=== PATIENT | female | born 1980 | race African-American/Black ===

== ENCOUNTER 2016-12-13 10:25 | Emergency (ER) | payer OTHER ==
[2016-12-13 10:35] VITALS: BP 134/81; PULSE 76; TEMP 98; BMI 36.5
[2016-12-13] MEDS ORDERED: KETOROLAC TROMETHAMINE 60 MG/2 ML VIAL ONE (11:30)
[2016-12-13] MEDS ORDERED: KETOROLAC TROMETHAMINE 60 MG/2 ML VIAL IM ONE (11:40)
--- NOTE | 2016-12-13 11:42 | PDOC ---
History of Present Illness - General Chief Complaint: Pain Stated Complaint: PAIN Time Seen by Provider: 12/13/16 10:50 History Source: Patient Exam Limitations: No Limitations - History of Present Illness Initial Comments: 12/13/16 11:41 Complaints of left groin pain started on Monday. States goes to the gym regularly and may have pulled a muscle doing some different gluteal exercises last week. Patient has chronic back pain and is on disability, receives physical therapy for exercising her lumbar spine and her knees. Patient states tried ibuprofen with minimal resolved. But states pain was so bad yesterday had difficulty getting out of bed. Denies fever, denies any dysuria, vaginal problems, or bowel problems. Has no lymph nodes that are swollen, and is never injured her groin in the past. Denies back pain or any radiating pain. States pain is primarily in the inner aspect of her left groin 12/13/16 19:26 Occurred: reports: last week Severity: reports: mild, moderate Pain Location: reports: lower extremity (left groin ) Modifying Factors: improves with: None Associated Symptoms (Fall): denies symptoms Past History - Travel Traveled outside of the country in the last 30 days: No Close contact w/someone who was outside of country & ill: No - Past Medical History Allergies/Adverse Reactions: Allergies Allergy/AdvReac Type Severity Reaction Status Date / Time No Known Allergies Allergy Verified 12/13/16 10:35 Home Medications: Ambulatory Orders NK [No Known Home Medication] 12/13/16 Asthma: Yes Other medical history: BULGING DISC - Reproductive History (#): 4 Therapeutic (s) & number: No - Psycho/Social/Smoking Cessation Hx Anxiety: No Suicidal Ideation: No Smoking Status: Yes Smoking History: Current every day smoker Have you smoked in the past 12 months: Yes Number of Cigarettes Smoked Daily: 10 Information on smoking cessation initiated: No Hx Alcohol Use: No Drug/Substance Use Hx: No Substance Use Type: None Trauma Specific PMHX - Complaint Specific PMHX Back Injury: No Neck Injury: No Review of Systems - Review of Systems Able to Perform ROS?: Yes Is the patient limited Estonian proficient: No Constitutional: Yes: Symptoms Reported HEENTM: Yes: Symptoms Reported All Other Systems: Reviewed and Negative *Physical Exam - Vital Signs Last Vital Signs Temp Pulse Resp BP Pulse Ox 98 F 76 18 134/81 98 12/13/16 10:31 12/13/16 10:31 12/13/16 10:31 12/13/16 10:31 12/13/16 10:31 - Physical Exam General Appearance: Yes: Nourished, Appropriately Dressed, Apparent Distress HEENT: positive: ZACHARY, Normal ENT Inspection, TMs Normal, Pharynx Normal Neck: positive: Supple. negative: Lymphadenopathy (R), Lymphadenopathy (L) Respiratory/Chest: positive: Lungs Clear, Normal Breath Sounds Extremity: positive: Normal Capillary Refill. negative: Normal Range of Motion (Limited range of motion to forward flexion and external rotation with pain reproduced at inguinal tendon . 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 Patient already receiving physical therapy for chronic back pain issues and will discuss possible therapy for this treatment to *DC/Admit/Observation/Transfer Diagnosis at time of Disposition: Inguinal strain Qualifiers: Encounter type: initial encounter Laterality: left Qualified Code(s): S76.212A - Strain of adductor muscle, fascia and tendon of left thigh, initial encounter - Discharge Dispostion Disposition: HOME Condition at time of disposition: Stable Admit: No - Referrals Referrals: Connor Colon [Primary Care Provider] - - Patient Instructions Printed Discharge Instructions: DI for Groin Strain Additional Instructions: Rest, ice to area on and off for 15 minutes 4-6 times a day Avoid heavy lifting or exercise until pain and swelling is resolved or until further directed Keep area highly elevated to reduce swelling Use splints/Latrell wrap as directed Followup with orthopedist in one to 2 days if not improving, if significantly improved may wait one week for followup with orthopedist May use Naprosyn 1 -500 mg tablet every 8 hours for 2 days then as needed as needed for pain
== END 2016-12-13 11:42 | disposition home or self-care (01) ==
LOC: JERFT 10:25
PROC: 3E0233Z Introduction of Anti-inflammatory into Muscle, Percutaneous Approach (ICD-10-PCS; principal; 2016-12-13)
DX: S76.212A Strain of adductor muscle, fascia and tendon of left thigh, initial encounter (principal); S39.011A Strain of muscle, fascia and tendon of abdomen, initial encounter; X50.0XXA Overexertion from strenuous movement or load, initial encounter; Y93.B9 Activity, other involving muscle strengthening exercises; Y92.39 Other specified sports and athletic area as the place of occurrence of the external cause; Y99.8 Other external cause status
CPT/HCPCS: 96372; 99281-25

== ENCOUNTER 2019-03-28 20:47 | Emergency (ER) | payer OTHER ==
[2019-03-28 20:58] VITALS: BP 160/82; PULSE 79; TEMP 98.4; BMI 38.9
--- NOTE | 2019-03-28 20:58 | PDOC ---
Rapid Medical Evaluation Time Seen by Provider: 03/28/19 20:54 Medical Evaluation: Allergies Allergy/AdvReac Type Severity Reaction Status Date / Time No Known Allergies Allergy Verified 12/13/16 10:35 03/28/19 20:54 Pt presents for R calf pain/knee pain started today. She admits to numbness to the affected area. Also has hx of Hip pain. No recent travel or OC use. (+) smoker Exam: TTP of the R medial calf bordering the R knee Orders: duplex Pt to proceed to the ER for further evaluation Discharge Disposition - Diagnosis Leg pain Qualifiers: Laterality: right Qualified Code(s): M79.604 - Pain in right leg - Referrals Referrals: Connor Colon [Primary Care Provider] - - Patient Instructions - Post Discharge Activity
--- NOTE | 2019-03-28 22:54 | PDOC ---
History of Present Illness - General Chief Complaint: Pain, Acute Stated Complaint: RIGHT KNEE PAIN Time Seen by Provider: 03/28/19 20:54 - History of Present Illness Initial Comments: 03/28/19 22:54 CHIEF COMPLAINT: HISTORY OF PRESENT ILLNESS: 38 yo F presents to [facility] with R knee/calf pain since 6 pm today. Patient reports that she was talking on the phone and took a step when she started feeling pain to her upper calf/posterior knee No recent travel or sick contacts. PAST MEDICAL HISTORY: Denies past medical history FAMILY HISTORY: Denies SOCIAL HISTORY: Smokes 1/2 pack daily. Denies tobacco, alcohol, illicit drug use. SURGICAL HISTORY: Denies ALLERGIES: No known drug allergies REVIEW OF SYSTEMS General/Constitutional: Denies fever or chills. Denies weakness, weight change. HEENT: Denies change in vision. Denies ear pain or discharge. Denies sore throat. Cardiovascular: Denies chest pain or shortness of breath. Respiratory: Denies cough, wheezing, or hemoptysis. Gastrointestinal: Denies nausea, vomiting, diarrhea or constipation. Denies rectal bleeding. Genitourinary: Denies dysuria, frequency, or change in urination. Musculoskeletal: Pain to R lower extremity. Denies neck or back pain. Skin and breasts: Denies rash or easy bruising. Neurologic: Denies headache, vertigo, loss of consciousness, or loss of sensation. Psychiatric: Denies depression or anxiety. PHYSICAL EXAM General Appearance: Well-appearing, appropriately dressed. No apparent distress , no intoxication. HEENT: EOMI, PERRLA, normal ENT inspection, normal voice, TMs normal, pharynx normal. No conjunctival pallor. No photophobia, scleral icterus. Neck: Supple. Trachea midline. No tenderness, rigidity, carotid bruit, stridor , lymphadenopathy, or thyromegaly. Respiratory/Chest: Lungs CTAB. No shortness of breath, chest tenderness, respiratory distress, accessory muscle use. No crackles, rales, rhonchi, stridor , wheezing, dullness Cardiovascular: RRR. S1, S2. No JVD, murmur, bradycardia, tachycardia. Vascular Pulses: Dorsalis-Pedis (R): 2+, Dorsalis-Pedis (L): 2+ Gastrointestinal/Abdominal: Normal bowel sounds. Abdomen soft, non-distended. No tenderness or rebound tenderness. No organomegaly, pulsatile mass, guarding , hernia, hepatomegaly, splenomegaly. Lymphatic: No adenopathy, tenderness. Musculoskeletal/Extremities: Mild tenderness to posterior R knee and R tibial plateau. Normal inspection. FROM of all extremities, normal capillary refill. Pelvis Stable. No CVA tenderness. No tenderness to extremities, pedal edema, swelling, erythema or deformity. Integumentary: Appropriate color, dry, warm. No cyanosis, erythema, jaundice or rash Neurologic: die stamper II-XII intact. Fully oriented, alert. Appropriate mood/affect. Motor strength 5/5. No appreciable EOM palsy, facial droop or sensory deficit. 03/28/19 23:03 Past History - Past Medical History Allergies/Adverse Reactions: Allergies Allergy/AdvReac Type Severity Reaction Status Date / Time No Known Allergies Allergy Verified 03/28/19 20:55 Home Medications: Ambulatory Orders Diclofenac Sodium 75 mg PO BID #20 tablet. 03/28/19 Asthma: Yes COPD: No Other medical history: chronic back pain - Reproductive History (#): 4 Therapeutic (s) & number: No - Suicide/Smoking/Psychosocial Hx Smoking Status: Yes Smoking History: Current every day smoker Have you smoked in the past 12 months: Yes Number of Cigarettes Smoked Daily: 10 Information on smoking cessation initiated: No Hx Alcohol Use: No Drug/Substance Use Hx: No Substance Use Type: None *Physical Exam - Vital Signs Last Vital Signs Temp Pulse Resp BP Pulse Ox 98.4 F 79 18 160/82 97 03/28/19 20:56 03/28/19 20:56 03/28/19 20:56 03/28/19 20:56 03/28/19 20:56 Medical Decision Making - Medical Decision Making 03/28/19 23:05 38 yo F presents to [facility] with R knee/calf pain since 6 pm today. -duplex ultrasound -knee xray US, xrays negative for acute pathology. knee immobilizer, toradol f/u with ortho *DC/Admit/Observation/Transfer Diagnosis at time of Disposition: Leg pain, right - Discharge Dispostion Disposition: HOME Condition at time of disposition: Stable Decision to Admit order: No - Prescriptions Prescriptions: Diclofenac Sodium 75 mg PO BID #20 tablet.dr - Referrals Referrals: Connor Colon [Primary Care Provider] - Piyush Umana MD [Non Staff, Medical] - Barry Zurita MD [Staff Physician] - - Patient Instructions Printed Discharge Instructions: DI for Leg Pain - Post Discharge Activity
[2019-03-28] MEDS ORDERED: KETOROLAC TROMETHAMINE 60 MG/2 ML VIAL IM ONE (23:02)
[2019-03-28] MEDS ORDERED: KETOROLAC TROMETHAMINE 60 MG/2 ML VIAL ONE (23:04)
== END 2019-03-28 23:14 | disposition home or self-care (01) ==
LOC: JERFT 20:47
PROC: 2W3RX1Z Immobilization of Left Lower Leg using Splint (ICD-10-PCS; principal; 2019-03-28)
PROC: 3E0233Z Introduction of Anti-inflammatory into Muscle, Percutaneous Approach (ICD-10-PCS; 2019-03-28)
DX: M79.662 Pain in left lower leg (principal); M25.562 Pain in left knee; F17.210 Nicotine dependence, cigarettes, uncomplicated
CPT/HCPCS: 73560-TC-RT-FY; 93971-TC; 99282-25

== ENCOUNTER 2019-04-06 10:30 | Emergency (ER) | payer OTHER ==
[2019-04-06 10:42] VITALS: BP 147/90; PULSE 80; TEMP 98.4; BMI 38.7
[2019-04-06] MEDS ORDERED: DEXAMETHASONE LIQUID 0.5 MG/5 ML PO ONE (11:29)
[2019-04-06] MEDS ORDERED: DEXAMETHASONE SOD PHOSPHATE 10 MG/1 ML VIAL ONE (11:30)
--- NOTE | 2019-04-06 11:35 | PDOC ---
History of Present Illness - General Chief Complaint: Cold Symptoms Stated Complaint: cough Time Seen by Provider: 04/06/19 11:19 - History of Present Illness Initial Comments: 04/06/19 11:31 38-year-old female with a past medical history of asthma presents for evaluation of upper respiratory cold symptoms 1 week without systemic symptoms. Past History - Past Medical History Allergies/Adverse Reactions: Allergies Allergy/AdvReac Type Severity Reaction Status Date / Time No Known Allergies Allergy Verified 03/28/19 20:55 Home Medications: Ambulatory Orders Diclofenac Sodium 75 mg PO BID #20 tablet.dr 03/28/19 Albuterol 0.083% Nebulizer Marcia [Ventolin 0.083% Nebulizer Soln -] 1 neb NEB Q4H PRN #20 vial 04/06/19 Albuterol Sulfate Inhaler - [Ventolin HFA Inhaler -] 1 - 2 inh PO Q4H #1 inhaler 04/06/19 Guaifenesin Dm [Mucinex Dm -] 1 tab PO BID #60 tab.er.12h 04/06/19 Nebulizer and Compressor [Pediatric Dog Nebulizer Systm] 1 each ASDIR PRN #1 each 04/06/19 Asthma: Yes COPD: No - Reproductive History (#): 4 Therapeutic (s) & number: No - Immunization History Immunization Up to Date: No - Psycho Social/Smoking Cessation Hx Smoking Status: Yes Smoking History: Current every day smoker Have you smoked in the past 12 months: No Number of Cigarettes Smoked Daily: 10 Information on smoking cessation initiated: No Hx Alcohol Use: No Drug/Substance Use Hx: No Substance Use Type: None Review of Systems - Review of Systems Constitutional: No: Fever Respiratory: Yes: Cough, Wheezing *Physical Exam - Vital Signs Last Vital Signs Temp Pulse Resp BP Pulse Ox 98.4 F 80 18 147/90 100 04/06/19 10:39 04/06/19 10:39 04/06/19 10:39 04/06/19 10:39 04/06/19 10:39 - Physical Exam Comments: 04/06/19 11:32 HEAD: NC/AT EYES: Conjuntiva clear Ears: Canals and TM's normal NOSE: No d/c THROAT: Moist mucous membrances, oral pharanx clear, uvula midline NECK: Supple without adenopathy CARDIAC: S1 S2 LUNGS: CTA Full and Equal breath sounds ABDOMEN: Soft NT ND MS: Full ROM in all joints without edema NEUROLOGIC: No gross sensory or motor deficits, NVID SKIN: Normal color and temperature no lesions or rashes Medical Decision Making - Medical Decision Making 04/06/19 11:32 benign examination. Patient's her primary care physician this week. She was given a prescription for antibiotics for sinusitis. She has no sinus symptoms just upper respiratory symptoms and cold symptoms. She has no sinus tenderness. She was given Decadron in the emergency room I instruct her not to take anymore steroids. She has never picked up her prescription so she has not been on them. I refilled her asthma medication place her on Mucinex. She will follow-up with her primary care physician in 1-2 days for further evaluation and treatment options. Discharge - Discharge Information Problems reviewed: Yes Clinical Impression/Diagnosis: Viral URI with cough Condition: Stable Disposition: HOME - Admission No - Additional Discharge Information Prescriptions: Albuterol 0.083% Nebulizer Marcia [Ventolin 0.083% Nebulizer Soln -] 1 neb NEB Q4H PRN #20 vial PRN Reason: Wheezing Albuterol Sulfate Inhaler - [Ventolin HFA Inhaler -] 1 - 2 inh PO Q4H #1 inhaler Guaifenesin Dm [Mucinex Dm -] 1 tab PO BID #60 tab.er.12h Nebulizer and Compressor [Pediatric Dog Nebulizer Systm] 1 each MC ASDIR PRN #1 each PRN Reason: Cough - Follow up/Referral Referrals: Connor Colon [Primary Care Provider] - - Patient Discharge Instructions Patient Printed Discharge Instructions: DI for Viral Upper Respiratory Infection -- Adult Additional Instructions: You were given a long-acting steroid in the emergency room. Do not take any steroid at home. Her asthma medication was refilled. For now he can hold off on the antibiotics. This is most likely a viral upper respiratory infection and does not require treatment with antibiotics. [facility] Return to the emergency room for worsening symptoms and follow up with her primary care physician in 1-2 days for further evaluation and treatment options. - Post Discharge Activity
--- NOTE | 2019-04-07 16:52 | EKG ---
Test Reason : Blood Pressure : / mmHG Vent. Rate : 068 BPM Atrial Rate : 068 BPM P-R Int : 142 ms QRS Dur : 092 ms QT Int : 388 ms P-R-T Axes : 017 006 028 degrees QTc Int : 412 ms NORMAL SINUS RHYTHM NORMAL ECG NO PREVIOUS ECGS AVAILABLE Confirmed by JESÚS KEY MD ([id number]) on 04/07/2019 4:52:00 PM Referred By: Confirmed By:JESÚS KEY MD
== END 2019-04-06 11:42 | disposition home or self-care (01) ==
LOC: JERFT 10:30
DX: J06.9 Acute upper respiratory infection, unspecified (principal); B97.89 Other viral agents as the cause of diseases classified elsewhere; J45.909 Unspecified asthma, uncomplicated; F17.210 Nicotine dependence, cigarettes, uncomplicated
CPT/HCPCS: 93005; 93010; 99281-25

== ENCOUNTER 2020-12-02 19:39 | Emergency (ER) | payer OTHER ==
[2020-12-02 20:01] VITALS: BP 136/91; PULSE 85; TEMP 98.5; BMI 37.5
== END 2020-12-02 20:32 | disposition home or self-care (01) ==
LOC: JERFT 19:39
PROC: 0X950ZZ Drainage of Left Axilla, Open Approach (ICD-10-PCS; principal; 2020-12-02)
DX: L02.412 Cutaneous abscess of left axilla (principal)
CPT/HCPCS: 99282-25

== ENCOUNTER 2021-07-02 07:21 | Emergency (ER) | payer OTHER ==
[2021-07-02 07:36] VITALS: BMI 39.8
[2021-07-02] MEDS ORDERED: KETOROLAC TROMETHAMINE 30 MG/1 ML VIAL IM ONE (07:44)
[2021-07-02] MEDS ORDERED: ACETAMINOPHEN 500 MG TABLET (FP) PO ONE (07:44)
[2021-07-02] MEDS ORDERED: KETOROLAC TROMETHAMINE 30 MG/1 ML VIAL ONE (07:49)
[2021-07-02] MEDS ORDERED: ACETAMINOPHEN 325 MG TABLET (FP) ONE (07:49)
[2021-07-02 08:45] VITALS: BP 112/75; PULSE 92; TEMP 102.5
== END 2021-07-02 08:50 | disposition home or self-care (01) ==
LOC: JER 07:21
PROC: 3E0233Z Introduction of Anti-inflammatory into Muscle, Percutaneous Approach (ICD-10-PCS; principal; 2021-07-02)
DX: U07.1 COVID-19 (principal); M79.10 Myalgia, unspecified site; R50.9 Fever, unspecified
CPT/HCPCS: 71045-TC-FY; 87804; 87807; 99284-25; C9803; U0003; U0005

== ENCOUNTER 2022-08-25 18:01 | Emergency (ER) | payer OTHER ==
[2022-08-25 18:24] VITALS: BP 141/94; PULSE 91; RESP 20; TEMP 98.3; BMI 40.7
[2022-08-25 20:01] LABS: BASO % 0.3 % (0-2.0); EOS % 1.7 % (0-4.5); HEMATOCRIT 34.6 % (32.4-45.2); HEMOGLOBIN 11.4 GM/dL (10.7-15.3); LYMPH % 26.3 % (8-40); MCH 26.4 pg (25.7-33.7); MCHC 32.9 g/dl (32.0-36.0); MEAN CELL VOLUME 80.2 fl (80-96); MEAN PLT VOLUME 8.7 fl (7.5-11.1); NEUT % 67.7 % (42.8-82.8); PLATELET COUNT 365 10^3/uL (134-434); RBC 4.32 M/mm3 (3.60-5.2); RDW 16.1 % (11.6-15.6); WHITE BLOOD COUNT 8.1 K/mm3 (4.0-10.0)
[2022-08-25 20:07] LABS: INR 1.04 (0.83-1.09); PROTHROMBIN TIME (PATIENT) 12.1 SEC (9.7-13.0)
[2022-08-25 20:09] LABS: ACTIVATED PTT 29.8 SECONDS (25.2-36.5)
[2022-08-25 20:23] LABS: ALBUMIN 3.5 g/dl (3.4-5.0); BLOOD UREA NITROGEN 12.4 mg/dL (7-18); CALCIUM 9.1 mg/dL (8.5-10.1)
[2022-08-25 20:26] LABS: CREATININE 0.9 mg/dL (0.55-1.3)
[2022-08-25 20:27] LABS: BILIRUBIN,TOTAL 0.2 mg/dL (0.2-1); TOT PROT 7.3 g/dl (6.4-8.2)
[2022-08-25 21:45] LABS: EPI CELLS >36 /uL (0-25.1); HYALINE CASTS 5 /uL (0-3.1); PH,URINE 5.5 (5.0-8.0); URINE APPEARANCE CLOUDY; URINE BACTERIA 3051 /uL (0-1359); URINE BILIRUBIN NEGATIVE (NEGATIVE); URINE COLOR YELLOW; URINE GLUCOSE (UA) NEGATIVE (NEGATIVE); URINE KETONE TRACE (NEGATIVE); URINE LEUK ESTERASE 1+ (NEGATIVE); URINE NITRITE NEGATIVE (NEGATIVE); URINE PROTEIN NEGATIVE (NEGATIVE); URINE UROBILINOGEN 0.2 mg/dL (0.2-1.0); URINE WBC 164 /uL (0-25.8)
[2022-08-25 21:47] LABS: URINE RBC 27.7 /uL (0-23.9)
== END 2022-08-25 22:40 | disposition home or self-care (01) ==
LOC: JER 18:01
DX: N39.0 Urinary tract infection, site not specified (principal); R53.83 Other fatigue
CPT/HCPCS: 0241U-QW; 36415; 71046-TC-FY; 80053; 81003; 84484; 84703; 85025; 85610; 85730; 87086; 93005; 93010; 99285-25

== ENCOUNTER 2022-09-07 08:23 | Emergency (ER) | payer OTHER ==
[2022-09-07] MEDS ORDERED: SODIUM CHLORIDE 1,000 ML IV STA (08:30)
[2022-09-07] MEDS ORDERED: ACETAMINOPHEN 500 MG TABLET (FP) PO ONE (08:30)
[2022-09-07 08:31] VITALS: BMI 40.7
[2022-09-07] MEDS ORDERED: FAMOTIDINE 20 MG TABLET PO ONE (08:31)
[2022-09-07] MEDS ORDERED: ACETAMINOPHEN 500 MG TABLET (FP) ONE (08:39)
[2022-09-07] MEDS ORDERED: predniSONE 20 MG TABLET (UD) ONE (08:40)
[2022-09-07] MEDS ORDERED: FAMOTIDINE 20 MG TABLET ONE (08:40)
[2022-09-07] MEDS ORDERED: ALBUTEROL SO4 2.5/IPRATROPIUM 0.5 INH SOL 3 ML VIAL.NEB. NEB ONE (08:40)
[2022-09-07] MEDS: ALBUTEROL SO4 2.5/IPRATROPIUM 0.5 INH SOL 3 ML VIAL.NEB. NEB SCH ×3 (09:05→09:35)
[2022-09-07 09:22] LABS: HEMATOCRIT 34.3 % (32.4-45.2); HEMOGLOBIN 11.5 G/dL (10.7-15.3); MCH 26.3 pg (25.7-33.7); MCHC 33.6 g/dl (32.0-36.0); MEAN CELL VOLUME 78.6 fl (80-96); MEAN PLT VOLUME 8.7 fl (7.5-11.1); PLATELET COUNT 343.4 10^3/uL (134-434); RBC 4.37 10^6/uL (3.60-5.2); RDW 16.7 % (11.6-15.6); WHITE BLOOD COUNT 16.5 10^3/uL (4.0-10.8)
[2022-09-07 09:24] LABS: BILIRUBIN,TOTAL 0.8 mg/dl (0.2-1); CALCIUM 9.7 mg/dl (8.5-10); CREATININE 0.9 mg/dl (0.55-1.3); MAGNESIUM 1.7 mg/dL (1.8-2.4); TOT PROT 7.5 g/dl (6.4-8.2)
[2022-09-07] MEDS ORDERED: predniSONE 20 MG TABLET (UD) PO SCH (10:00)
[2022-09-07 11:05] VITALS: BP 134/71; PULSE 95; RESP 18; TEMP 99.7
== END 2022-09-07 11:41 | disposition home or self-care (01) ==
LOC: FER 08:23
PROC: 3E0F7GC Introduction of Other Therapeutic Substance into Respiratory Tract, Via Natural or Artificial Opening (ICD-10-PCS; principal; 2022-09-07)
PROC: 3E0337Z Introduction of Electrolytic and Water Balance Substance into Peripheral Vein, Percutaneous Approach (ICD-10-PCS; 2022-09-07)
DX: J45.909 Unspecified asthma, uncomplicated (principal); R50.9 Fever, unspecified
CPT/HCPCS: 0241U-QW; 36415; 71046-TC-FY; 80053; 81003; 83690; 83735; 84484; 84703; 85027; 93005; 99285-25

== ENCOUNTER 2022-09-15 04:27 | Day surgery (SDC) | payer OTHER ==
[2022-09-13 15:47] VITALS: BMI 42.7
[2022-09-15 11:33] VITALS: RESP 18
[2022-09-15] MEDS ORDERED: KETOROLAC TROMETHAMINE 30 MG/1 ML VIAL ONE (13:33)
[2022-09-15] MEDS ORDERED: ACETAMINOPHEN INJECTION 100 ML IVPB ONE (13:42)
[2022-09-15 13:49] VITALS: TEMP 97
[2022-09-15] MEDS ORDERED: ACETAMINOPHEN 1000 MG/100 ML BAG IVPB ONE (14:15)
[2022-09-15 14:40] VITALS: BP 131/73; PULSE 63
== END 2022-09-15 14:55 | disposition home or self-care (01) ==
LOC: JASU-ENDO 04:27
PROVIDERS: ATTEND Internal Medicine Gastroenterology
PROC: 0DB68ZX Excision of Stomach, Via Natural or Artificial Opening Endoscopic, Diagnostic (ICD-10-PCS; 2022-09-15)
PROC: 0DJD8ZZ Inspection of Lower Intestinal Tract, Via Natural or Artificial Opening Endoscopic (ICD-10-PCS; principal; 2022-09-15 12:15)
DX: K64.2 Third degree hemorrhoids (principal); K29.50 Unspecified chronic gastritis without bleeding
CPT/HCPCS: 81025; 88305-TC; 88342-TC

== ENCOUNTER 2023-10-12 23:37 | Emergency (ER) | payer OTHER ==
[2023-10-12 23:44] VITALS: RESP 18; BMI 38.9
[2023-10-13] MEDS ORDERED: KETOROLAC TROMETHAMINE 30 MG/1 ML VIAL ONE (00:30)
[2023-10-13] MEDS: KETOROLAC TROMETHAMINE 30 MG/1 ML VIAL IM ONE (00:37)
[2023-10-13] MEDS ORDERED: LIDOCAINE 4% PATCH TP ONE (00:41)
[2023-10-13] MEDS ORDERED: METHOCARBAMOL 500 MG TABLET ONE (00:42)
[2023-10-13] MEDS: METHOCARBAMOL 500 MG TABLET PO ONE (00:51)
[2023-10-13] MEDS: LIDOCAINE 5% TOPICAL PATCH TP ONE (00:51)
[2023-10-13 02:09] VITALS: BP 122/78; PULSE 86; TEMP 98.3
[2023-10-13] MEDS ORDERED: LIDOCAINE PATCH REMOVAL MC SCH (22:00)
== END 2023-10-13 02:09 | disposition home or self-care (01) ==
LOC: JER 23:37
PROC: 3E0233Z Introduction of Anti-inflammatory into Muscle, Percutaneous Approach (ICD-10-PCS; principal; 2023-10-13)
DX: M25.511 Pain in right shoulder (principal); R20.0 Anesthesia of skin
CPT/HCPCS: 73030-TC-RT-FY; 93005; 93010; 99284-25

== ENCOUNTER 2024-05-22 11:37 | Emergency (ER) | payer OTHER ==
[2024-05-22 12:26] VITALS: TEMP 98.2; BMI 40.5
[2024-05-22] MEDS ORDERED: ACETAMINOPHEN INJECTION 100 ML ONE (14:01)
[2024-05-22] MEDS ORDERED: LIDOCAINE 5% TOPICAL PATCH ONE (14:01)
[2024-05-22] MEDS: LIDOCAINE 4% PATCH TP ONE (14:25)
[2024-05-22] MEDS: ACETAMINOPHEN 1000 MG/100 ML BAG IVPB ONE (14:25)
[2024-05-22 14:27] LABS: BASO % 0.5 % (0-2.0); EOS % 2.7 % (0-4.5); HEMATOCRIT 33.3 % (32.4-45.2); HEMOGLOBIN 10.6 GM/dL (10.7-15.3); LYMPH % 21.8 % (8-40); MCH 26.1 pg (25.7-33.7); MEAN CELL VOLUME 81.5 fl (80-96); MEAN PLT VOLUME 8.5 fl (7.5-11.1); MONO % 4.1 % (3.8-10.2); NEUT % 70.9 % (42.8-82.8); PLATELET COUNT 280 10^3/uL (134-434); RBC 4.09 M/mm3 (3.60-5.2); RDW 17.7 % (11.6-15.6); WHITE BLOOD COUNT 6.9 K/mm3 (4.0-10.0)
[2024-05-22 14:35] LABS: INR 1.01 (0.83-1.09); PROTHROMBIN TIME (PATIENT) 11.4 SEC (9.7-13.0)
[2024-05-22 14:38] LABS: ACTIVATED PTT 30.5 SECONDS (25.2-36.5)
[2024-05-22 14:43] LABS: POTASSIUM 4.3 mmol/L (3.5-5.1)
[2024-05-22 14:46] LABS: CALCIUM 9.4 mg/dL (8.5-10.1)
[2024-05-22 14:47] LABS: ALBUMIN 3.4 g/dl (3.4-5.0); BLOOD UREA NITROGEN 10.5 mg/dL (7-18); MAGNESIUM 2.1 mg/dL (1.8-2.4)
[2024-05-22 14:52] LABS: BILIRUBIN,TOTAL 0.3 mg/dL (0.2-1)
[2024-05-22 15:46] VITALS: BP 153/72; PULSE 85; RESP 20
[2024-05-22] MEDS ORDERED: LIDOCAINE PATCH REMOVAL MC ONE (22:00)
== END 2024-05-22 15:52 | disposition home or self-care (01) ==
LOC: JER 11:37
PROC: 3E033NZ Introduction of Analgesics, Hypnotics, Sedatives into Peripheral Vein, Percutaneous Approach (ICD-10-PCS; principal; 2024-05-22)
DX: N92.1 Excessive and frequent menstruation with irregular cycle (principal); N92.4 Excessive bleeding in the premenopausal period; R53.83 Other fatigue; R53.1 Weakness
CPT/HCPCS: 36415; 80053; 83735; 84703; 85025; 85610; 85730; 86850; 86900; 86901; 99284-25; J0131